=== PATIENT | female | born 1950 | race Caucasian/White ===

== ENCOUNTER 2018-07-31 08:26 | Day surgery (SDC) | payer MEDICARE ==
[2018-07-31 08:47] LABS: BASOPHILS 0.1 % (0-2); HEMATOCRIT 41.1 % (36.0-48.0); HEMOGLOBIN 14.1 g/dL (12-16); IMMATURE GRANULOCYTES 0.1 % (0-5); LYMPHOCYTES 25.4 % (15-50); MCH 29.6 pg (26.0-34.0); MCHC 34.3 g/dL (31.0-37.0); MCV 86.2 fL (80.0-100.0); MONOCYTES 5.9 % (2-11); NEUTROPHILS 67.5 % (40-80); PLATELET COUNT 198 10x3/uL (130-400); RBC 4.77 10x6/uL (4.00-5.40); RDW 13.3 % (11.5-14.5); WBC 8.2 10x3/uL (4.8-10.8)
[2018-07-31 08:56] LABS: APTT 31.3 SECONDS (22.8-39.4); INR 1.04 (0.85-1.17); PROTIME 13.1 SECONDS (11.6-15.0)
[2018-07-31] MEDS ORDERED: METOPROLOL TART50 MG PO (11:02)
[2018-07-31] MEDS ORDERED: DIOVAN80 MG PO (11:02)
[2018-07-31 11:09] VITALS: BMI 39.7
--- NOTE | 2018-07-31 14:10 | NUR ---
PT DC INSTRUCTIONS REVIEWED AT THIS TIME, PT VERBALIZES UNDERSTANDING AND AGREES, PT IV REMOVED AT THIS TIME, INTACT, NO REDNESS OR SWELLING NOTED AT SITE.
--- NOTE | 2018-07-31 14:25 | NUR ---
PT LEAVING OPS SURGERY AT THIS TIME VIA WC.
--- NOTE | 2018-08-01 13:22 | OP ---
PATIENT NAME: JEFFERY FLANAGAN MEDICAL RECORD: [id number] :50 LOCATION:D.OPS ADMISSION DATE: SURGEON: KASSIE RUGGIERO MD DATE OF OPERATION: 07/31/2018 PREOPERATIVE DIAGNOSES: History of multiple colon polyps including a sigmoid colon polyp at 25 cm, which was a tubular adenoma with high-grade dysplasia. POSTOPERATIVE DIAGNOSES: History of multiple colon polyps including a sigmoid colon polyp at 25 cm, which was a tubular adenoma with high-grade dysplasia with a total of 4 polyps. Three of these were sessile polyps that were all less than 8 mm in diameter. One was a semi-pedunculated polyp that was likely at the site of the sigmoid polypectomy site. PROCEDURES: 1. Total colonoscopy to cecum. 2. Hot biopsy forceps polypectomies times 4. SURGEON: Kassie Ruggiero MD MOBILE ENGINEER: None. BLOOD LOSS: Minimal. ANESTHESIA: IV sedation. COMPLICATIONS: None. The risks, possible complications and alternatives to the procedure were explained to the patient. She elects to proceed. The discussion specifically included endoscopic perforation. ENDOSCOPIC COURSE: The patient was conveyed to the endoscopy suite electively on 07/31/2018. IV sedation was induced by the anesthesia staff. The patient was placed in the Lebl[place] position. A digital rectal examination was performed. A colonoscope was inserted through the anus. It was easily advanced to the cecum. The prep was excellent. I slowly withdrew the endoscope. I utilized normal imaging as well as narrow band imaging. I dragged the folds. The pullback was greater than a 20-minute pullback. Four hot biopsy forceps polypectomies were performed. A retroflexed view was obtained in the rectum. I then unretroflexed the scope and removed it under direct vision. I will see the patient in my office in 2-3 weeks. I will plan for her next colonoscopy to take place in 2 years. TRANSINT:[id number] Voice Confirmation ID: [id number] DOCUMENT ID: [id number] CC: Magno Hernandez [phone] Dr. Dany Muniz [phone] OPERATIVE REPORT [id number] JEFFERY FLANAGAN KASSIE RUGGIERO MD at 1322 CC: ASA LIND MD, DR. DANY MUNIZ and MAGNO HERNANDEZ [phone] DICTATION DATE: 07/31/18 1332 IMPROVEMENT SPEC: 07/31/18 1409 [facility] 07/31/18 [place] [id number] [place] [id number]
--- NOTE | 2018-08-01 13:22 | HP ---
PATIENT: JEFFERY FLANAGAN MEDICAL RECORD: [id number] ACCOUNT: [id number] LOCATION:[facility] : 50 ADMISSION DATE: 07/31/18 PCP: CYRIL MORTON HISTORY AND PHYSICAL EXAMINATION PRINCIPAL DIAGNOSIS: Colon polyps. HISTORY OF PRESENT ILLNESS: The patient underwent a colonoscopy in April of this year due to hematochezia. She was found to have an ascending colon polyp, a hepatic flexure polyp, and a sigmoid colon polyp. The sigmoid colon polyp at 25 cm was the most worrisome and there was a tubular adenoma with high-grade dysplasia. 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 HOME MEDICATIONS: Valsartan as well as metoprolol. ALLERGIES: PENICILLIN. PAST MEDICAL AND SURGICAL HISTORY: Hypertension. REVIEW OF SYSTEMS: Negative for CVA or seizures. Negative for diabetes or thyroid problems. PHYSICAL EXAMINATION: GENERAL: The patient does not appear acutely ill. VITAL SIGNS: Reviewed. EARS: External ears appear normal. EYES: Extraocular movements are intact. NECK: Trachea is midline. CHEST: No intercostal retractions. PULMONARY: Nonlabored. IMPRESSION: History of colon polyps including one tubular adenoma with high-grade dysplasia at 25 cm. PLAN: As described above. TRANSINT:[id number] Voice Confirmation ID: [id number] DOCUMENT ID: [id number] CC: Magno Hernandez [phone] Dr. Dany Muniz [phone] KASSIE RUGGIERO MD at 1322 CC: ASA LIND MD, DR. DANY MUNIZ and MAGNO HERNANDEZ [id number] DICTATION DATE: 07/31/18 1246 [place]: 07/31/18 1314 [facility] 07/31/18 [place] [id number] [place] [address]
== END 2018-07-31 14:25 | disposition home or self-care (01) ==
LOC: D.OPS 08:26
PROVIDERS: Anesthesiology; ATTEND Surgery
DX: D12.2 Benign neoplasm of ascending colon (principal); D12.5 Benign neoplasm of sigmoid colon; K63.5 Polyp of colon; Z86.010 Personal history of colon polyps; Z01.812 Encounter for preprocedural laboratory examination

== ENCOUNTER → 2018-09-19 09:58 | Outpatient (CLI) | payer MEDICARE ==
[~2018-09-19 09:58] MED LIST: DIOVAN80 MG PO; METOPROLOL TART50 MG PO
== END | disposition home or self-care (01) ==
LOC: D.US 09:58
PROVIDERS: ATTEND Specialist
DX: N60.02 Solitary cyst of left breast (principal)